=== PATIENT | male | born 1980 | race Caucasian/White ===

== ENCOUNTER 2020-03-20 13:15 | Emergency (ER) | payer OTHER ==
[~2020-03-20] VITALS: Ht 167.6 cm; Wt 68.0 kg
[2020-03-20] MEDS ORDERED: PRILOSEC OTC20 MG PO (13:31)
[2020-03-20 14:15] LABS: ABSOLUTE NEUTROPHILS 10.1 thou/uL (1.4-8.2); BASOPHILS 0.7 % (0.0-2.0); EOSINOPHILS 0.9 % (0.0-3.0); HEMATOCRIT 39.2 % (42.0-52.0); HEMOGLOBIN 13.8 gm/dL (14.0-18.0); LYMPHOCYTES 17.3 % (24.0-44.0); MCH 31.2 pg (26.0-34.0); MCHC 35.2 g/dL (28.0-37.0); MCV 88.5 fL (80.0-100.0); MONOCYTES 3.9 % (1.0-8.0); PLATELET COUNT 199 thou/uL (150-400); POLYS 77.2 % (36.0-66.0); RBC 4.43 mil/uL (4.50-6.00); RDW 13.3 % (10.5-14.5); WBC 13.1 thou/uL (4.0-11.0)
[2020-03-20 14:27] LABS: ANION GAP 10 mmol/L (7-16); BUN 13 mg/dL (7-18); CALCIUM 9.2 mg/dL (8.5-10.1); CHLORIDE 100 mmol/L (98-107); CO2 25 mmol/L (21-32); CREATININE 1.3 mg/dL (0.7-1.3); GLUCOSE 110 mg/dL (74-106); POTASSIUM 3.3 mmol/L (3.5-5.1); SODIUM 135 mmol/L (136-145)
[2020-03-20 14:37] LABS: ALBUMIN 4.2 g/dL (3.4-5.0); SGOT 31 U/L (15-37); SGPT 30 U/L (30-65); TOTAL BILIRUBIN 0.6 mg/dL (<0.1-1.0); TOTAL PROTEIN 7.9 g/dL (6.4-8.2); TROPONIN-I <0.06 ng/mL (<0.06)
[2020-03-20] MEDS ORDERED: CHLORPROMAZINE25 M3 PO (17:12)
[2020-03-20 18:21] VITALS: BP 109/41
--- NOTE | 2020-03-21 08:32 | EKG ---
[facility] [place] [address] ELECTROCARDIOGRAM REPORT Name: MORGAN CAI Room #: DEP [facility].#: [id number] Admission: 03/20/20 Attend Phys: Discharge: 03/20/20 Date of : 78 Report #: [id number] THIS REPORT FOR: cc: XOCHILT - Izzy family physician/PCP XOCHILT - Izzy family physician/PCP Mikhail Armas MD MERGED WITH [facility] THIS REPORT FOR: //name// [facility] ED Test Date: 2020-03-20 Test Time: 14:11:36 Pat Name: MORGAN CAI Department: Room: Gender: Senior Assistant Manager: [facility] : 1980 Requested By: Filiberto Christian Order Number: [id number] MD: Mikhail Armas Measurements Intervals Maxwell Rate: 69 P: 41 MI: 182 QRS: -19 QRSD: 94 T: 15 QT: 398 QTc: 427 Interpretive Statements Sinus rhythm Borderline left axis deviation Anteroseptal infarct, old No previous ECG available for comparison Electronically Signed On 03-21-2020 8:31:08 CDT by Mikhail Armas [email or web address] <ELECTRONICALLY SIGNED> By: Mikhail Armas MD, FACC 03/21/20 0831 1411 1411 Mikhail Armas MD, [facility] /EPI
== END 2020-03-20 18:22 | disposition home or self-care (01) ==
LOC: ER 13:15
PROVIDERS: Physician Assistant
DX: R06.6 Hiccough (principal); R12 Heartburn; K21.9 Gastro-esophageal reflux disease without esophagitis; F17.210 Nicotine dependence, cigarettes, uncomplicated; Z79.899 Other long term (current) drug therapy